=== PATIENT | male | born 1990 | race Caucasian/White ===

== ENCOUNTER 2017-06-14 19:58 | Emergency (ER) | payer OTHER ==
[~2017-06-14] VITALS: Ht 188 cm; Wt 97.5 kg
[~2017-06-14 19:58] MED LIST: AUGMENTIN 875875 MG PO; CIPRO500 M1 PO; FLAGYL500 MG PO; LEVSIN0.125 M1 PO; MOTRIN800 MG PO; PRISTIQ ER50 MG PO; ZOFRAN4 M2 PO; ZYRTEC10 M3 PO
[2017-06-14 20:15] VITALS: BP 132/81
--- NOTE | 2017-06-14 20:52 | ED GI/GU/ABDOMINAL COMPLAINT ---
History of Present Illness General Chief Complaint: Skin Rash/ Abcess Stated Complaint: "SO I CALLED MY DOCTOR, I HAVE AN ABCESS" Source: patient, old records, friend, Epic Exam Limitations: no limitations Vital Signs & Intake/Output Vital Signs & Intake/Output Vital Signs Date Time Temp Pulse Resp B/P B/P Pulse O2 O2 Flow FiO2 Mean Ox Delivery Rate 06/14 2014 98.2 86 18 132/81 98 Room Air Allergies Coded Allergies: No Known Drug Allergies (09/04/15) Uncoded Allergies: SEASONAL (01/11/12) Reconcile Medications Amoxicillin/Clavulanate Potass (Amox-Clav 875-125 MG Tablet) 875 MG TAB 1 TAB PO BID INFECTION Cetirizine HCl (Zyrtec) 10 MG TABLET 1 TAB PO DAILY ALLERGIES (Reported) Ciprofloxacin HCl (Cipro) 500 MG TABLET 1 TAB PO BID INTESTINAL INFECTION Desvenlafaxine Succinate (Pristiq ER) 50 MG TAB.ER.24H 1 TAB PO DAILY ANXIETY (Reported) Hyoscyamine (Levsin) 0.125 MG TABLET 1-2 TAB PO Q6P PRN ABDOMINAL CRAMPS Ibuprofen (Motrin) 800 MG TAB 1 TAB PO TID PRN PAIN Metronidazole (Flagyl) 500 MG TABLET 1 TAB PO Q6 INTESTINAL INFECTION Ondansetron HCl (Zofran) 4 MG TABLET 1 TAB PO Q6 PRN NAUSEA/VOMITING Triage Note: RECEIVED 27 YO MALE C/O ABSCESS TO ANAL AREA. PT SENT TO ED BY PMD FOR I + D TO ABSCESS. PT REQUESTING TO SEE SOMEONE WITH EXPERIENCE DRAINING ABSCESSES TO ANAL REGION Triage Nurses Notes Reviewed? yes Onset: several days Duration: day(s):, constant, continues in ED, getting worse Timing: recent history Quality/Severity: aching, moderate Location: anal Radiation: no radiation Prior Abdominal Problems: similar symptoms Past Sexual History: Unobtainable at this time Modifying Factors: Worsens With: defecating, exercise, movement, palpation. Associated Symptoms: lumps, mass HPI: Several days prior to admission patient complains of recurrent anal lesion/ abscess with history of fistula requesting colorectal surgery I&D because he needs to leave town for work tomorrow in his physician is out of town. Advised patient there is no specialist available the emergency department the current time and referred. He denies fever chills nausea vomiting diarrhea abdominal pain chest pain shortness breath headache dysuria bleeding. Past History Travel History Traveled to [place] past 21 day No Medical History Any Pertinent Medical History? see below for history Neurological: NONE EENT: allergies Cardiovascular: NONE Respiratory: NONE Gastrointestinal: GERD Hepatic: NONE Renal: NONE Musculoskeletal: NONE Psychiatric: anxiety Endocrine: NONE Blood Disorders: NONE Cancer(s): NONE Surgical History Surgical History: non-contributory Psychosocial History What is your primary language [place] Tobacco Use: Never used Family History Hx Contributory? No Review of Systems Review of Systems Constitutional: Reports: no symptoms. EENTM: Reports: no symptoms. Respiratory: Reports: no symptoms. Cardiovascular: Reports: no symptoms. GI: Reports: see HPI. Genitourinary: Reports: no symptoms. Musculoskeletal: Reports: no symptoms. Skin: Reports: no symptoms. Neurological/Psychological: Reports: no symptoms. Hematologic/Endocrine: Reports: no symptoms. Immunologic/Allergic: Reports: no symptoms. All Other Systems: Reviewed and Negative Physical Exam Physical Exam General Appearance: well developed/nourished, alert, awake Head: atraumatic, normal appearance Eyes: Bilateral: normal appearance, PERRL, EOMI, normal inspection. Ears, Nose, Throat, Mouth: hearing grossly normal Neck: normal inspection Gastrointestinal: soft, non-tender Rectal: deferred Back: normal range of motion Extremities: normal range of motion Neurologic/Psych: no motor/sensory deficits, awake, alert, normal gait Skin: intact Core Measures ACS in differential dx? No Sepsis Present: No Sepsis Focused Exam Completed? No Progress Differential Diagnosis: hemorrhoids Plan of Care: outpatient follow up Initial ED EKG: none Departure Departure Time of Disposition: 2049 Disposition: HOME OR SELF CARE Condition: Stable Clinical Impression Primary Impression: Anal abscess Referrals: Vicente Jauregui DO,Tay Lynch MD,Chintan Knapp Departure Forms: Customer Survey General Discharge Information RELEASE- WORK
== END 2017-06-14 20:59 ==
LOC: ERH 19:58
DX: K61.0 Anal abscess (principal)